=== PATIENT | male | born 1955 | race Caucasian/White ===

== ENCOUNTER 2018-09-19 15:28 | Emergency (ER) | payer BC ==
--- NOTE | 2018-09-19 15:43 | EDPHY ---
HPI/HX/ROS/PE/MDM Narrative: CHIEF COMPLAINT: Cough, congestion HPI: This patient is a 62-year-old male with history of hypothyroidism. He arrives today with his and states "I've got a wicked chest infection". He has had cough and congestion ongoing for 12 days, which began after doing yard work with lots of dust. He has been unable to lie down or sleep. He has not checked his temperature. Endorses productive cough with thick white or yellowish sputum. He has tried Mucinex, NyQuil, and DayQuil for relief without much success. Today, he complains of dyspnea and upper chest pain when coughing. No nausea, vomiting, diarrhea, headache, lightheadedness, or other associated symptoms. REVIEW OF SYSTEMS: A comprehensive 10 system review of systems is otherwise negative aside from elements mentioned in the history of present illness and medical decision making. PMH: Denies SOCIAL HISTORY: at bedside. PHYSICAL EXAM: General:Patient is alert, in no acute distress. ENT:Eyes are normal to inspection. ENT inspection normal. Neck: Normal inspection. Full range of motion. Respiratory:No respiratory distress. Breath sounds normal bilaterally. Cardiovascular: Regular rate and rhythm. Strong peripheral pulses. Normal cap refill. Abdomen:The abdomen is nontender to palpation. There are no peritoneal signs. There are normal bowel sounds. Back: Normal to inspection. No tenderness to palpation. Skin: Normal color. No rash. Warm and dry. Extremities: Normal appearance. Full range of motion. Neuro: Oriented x3. Normal motor function. Normal sensory function. ED Course: 62 y/o male presents with 12 day history of cough and cold symptoms. Exam is largely unremarkable, lungs are clear to auscultation. He is afebrile here in the emergency department. Plan for chest x-ray, flu swab. Reviewed x-ray. No evidence of pneumonia. Flu swab is pending at this time. Flu swab negative. Reassessed. Discussed imaging and laboratory results. I offered blood work for further evaluation but the patient declines, preferring discharge home and symptomatic treatment. Plan to discharge home in good condition with prescription for albuterol, Tessalon Pearles, and Hycodan syrup for symptom relief. Prescription for Augmentin provided - the patient has been counselled to only take antibiotics if symptoms do not improve in 2-3 days. Plan to administer 60mg PO Prednisone prior to discharge. Follow up and return precautions discussed. He is comfortable with this plan. MDM: This patient presents with approximately 10-12 days of signs and symptoms consistent with bronchitis. There is no evidence for acute coronary syndrome, chest x-ray is negative for pneumonia, and the patient does not have symptoms that are suggestive of pulmonary embolus or thoracic aortic dissection. He is comfortable with plan to be discharged home with him the medic therapy and I have agreed given a prescription for antibiotics should he fail to improve in another couple days. He is comfortable with this plan. - Data Points Imaging Results: Imaging Impressions Chest X-Ray 09/19/18 15:40 Impression: Findings most consistent with airways disease are noted with no superimposed pneumonia identified. Imaging: I viewed and interpreted images myself Laboratory Results: 09/19/18 16:05 Nasal Influenza A PCR NEGATIVE FOR FLU A (NEGATIVE) Nasal Influenza B PCR NEGATIVE FOR FLU B (NEGATIVE) RSV (PCR) NEGATIVE FOR RSV (NEGATIVE) General Time Seen by Provider: 09/19/18 15:39 Initial Vital Signs: Initial Vital Signs Temperature (C) 36.9 C 09/19/18 15:33 Heart Rate 60 09/19/18 15:33 Respiratory Rate 18 09/19/18 15:33 Blood Pressure 140/86 H 09/19/18 15:33 O2 Sat (%) 94 09/19/18 15:33 O2 Delivery Mode Room Air Allergies/Adverse Reactions: erythromycin base Allergy (Verified 09/19/18 15:33) Home Medications: Medication Instructions Recorded Albuterol [Proventil Inhaler HFA 1 - 2 puffs IH Q4PRN PRN #1 mdi 09/19/18 (*)] Amoxicillin/Clavulanate Pot 875 mg PO BID #14 tab 09/19/18 [Augmentin 875Mg] Benzonatate [Tessalon Pearles (RX)] 100 mg PO TID PRN #15 cap 09/19/18 HYDROcodone/HOMATROPINE HYCODA 1 tsp PO Q4-6PRN PRN #120 ml 09/19/18 [Hycodan Syrup (RX)] Mucinex 09/19/18 Departure - Departure Disposition: Home, Routine, Self-Care Clinical Impression: Acute bronchitis Condition: Good Instructions: Acute Bronchitis (ED) Additional Instructions: Follow up with your primary care provider in 2-3 days. Take albuterol as prescribed as needed for difficulty breathing. Take Hycodan cough syrup as prescribed as needed for cough. Take Tessalon Pearles as prescribed as needed for cough. You have been provided with a prescription for Augmentin - please only take this if you are not improving in 2-3 days as we discussed. Return to the emergency department for high fever, worsening chest pain, difficulty breathing, or other worsening of condition. Referrals: Juan Marie [Primary Care Provider] - As per Instructions Prescriptions: Albuterol [Proventil Inhaler HFA (*)] 1 - 2 puffs IH Q4PRN PRN #1 mdi PRN Reason: Sob/Dyspnea Amoxicillin/Clavulanate Pot [Augmentin 875Mg] 875 mg PO BID #14 tab Benzonatate [Tessalon Pearles (RX)] 100 mg PO TID PRN #15 cap PRN Reason: Cough, Severe HYDROcodone/HOMATROPINE HYCODA [Hycodan Syrup (RX)] 1 tsp PO Q4-6PRN PRN #120 ml PRN Reason: Cough, Severe Report Scribed for: Riley Chakraborty Report Scribed by: Vangie Randle Date of Report: 09/19/18 Time of Report: 15:43 Physician Review and Approval Statement: Portions of this note were transcribed by an ED scribe. I personally performed the history, physical exam, and medical decision making; and confirm the accuracy of the information in the transcribed note.
[2018-09-19] MEDS ORDERED: predniSONE 20 MG TAB PO ONE (17:03)
[2018-09-19 17:31] VITALS: BP 146/82
== END 2018-09-19 17:30 | disposition home or self-care (01) ==
DX: J20.9 Acute bronchitis, unspecified (principal); E03.9 Hypothyroidism, unspecified
CPT/HCPCS: J7512